=== PATIENT | female | born 1995 | race Hispanic/Latino ===

== ENCOUNTER → 2021-01-08 | Outpatient (CLI) | payer BC ==
[~2021-01-08] MED LIST: OMEPRAZOLE40 MG PO
== END ==
LOC: US 07:11
PROVIDERS: ATTEND Internal Medicine Gastroenterology
DX: R10.10 Upper abdominal pain, unspecified (principal)
CPT/HCPCS: 76700

== ENCOUNTER → 2021-01-12 | Day surgery (SDC) | payer BC, OTHER ==
[~2021-01-12] MED LIST changes: +PANTOPRAZOLE 40 MG 10ML VIAL ONE; +PROPOFOL IV EMULSION 10 MG/ML 20 ML VIAL ONE
[2021-01-12 10:30] VITALS: BP 128/73
== END | disposition home or self-care (01) ==
LOC: ENDO 06:14
PROVIDERS: ATTEND Internal Medicine Gastroenterology
DX: K21.00 Gastro-esophageal reflux disease with esophagitis, without bleeding (principal); K29.50 Unspecified chronic gastritis without bleeding; R19.7 Diarrhea, unspecified; Z01.812 Encounter for preprocedural laboratory examination; Z20.822 Contact with and (suspected) exposure to COVID-19; Z68.28 Body mass index [BMI] 28.0-28.9, adult; Z80.0 Family history of malignant neoplasm of digestive organs
CPT/HCPCS: 43239; 43450; 81025; U0002